=== PATIENT | male | born 1965 | race Caucasian/White ===

== ENCOUNTER 2019-07-30 09:05 | Day surgery (SDC) | payer BC ==
[2019-07-25 15:47] VITALS: BMI 21.2
[~2019-07-30 09:05] MED LIST: LACTATED RINGERS 1,000 ML IV SCH
[2019-07-30 09:26] VITALS: TEMP 98.1
[2019-07-30] MEDS ORDERED: LIDOCAINE 1% 20 ML VIAL (10MG/ML) FOR IV START INTRADERMA ONE (09:31)
[2019-07-30] MEDS ORDERED: MIDAZOLAM 2 MG/2 ML VIAL ONE (09:42)
[2019-07-30] MEDS ORDERED: PROPOFOL 10 MG/ML 20 ML VIAL IV ONE (09:42)
[2019-07-30] MEDS ORDERED: fentaNYL (PF) 50 MCG/ML 2 ML AMP ONE (09:42)
--- NOTE | 2019-07-30 10:15 | P.PCN ---
Date of Procedure: 07/30/19 Description of Procedure: BRIEF HISTORY: Patient is a 54-year-old pleasant male scheduled for an elective colonoscopy as a part of screening for malignant neoplasm of the colon. Patient denies any change in bowel habits, blood per rectum or abdominal pain. He does report a family history of colon cancer in his maternal grandfather in his 50s. No prior colonoscopy reported. PROCEDURE PERFORMED: Colonoscopy with polypectomy. PREOPERATIVE DIAGNOSIS: Screening for malignant neoplasm of the colon, no prior colonoscopy. ESTIMATED BLOOD LOSS: Minimal. IV sedation per Anesthesia. PROCEDURE: After informed consent was obtained, the patient, was brought into the endoscopy unit. IV sedation was administered by Anesthesia under continuous monitoring. Digital rectal examination was normal. Initially the Olympus CF-190 flexible video colonoscope was then inserted in the rectum, gradually advanced into the cecum without any difficulty. Careful examination was performed as the scope was gradually being withdrawn. Ileocecal valve and the appendiceal orifice were visualized and appeared normal, with retroflexion in the cecum with no masses or polyps noted. Prep was excellent. Mucosa of the cecum, ascending colon, transverse colon, descending colon, sigmoid colon, and rectum appeared normal. 2 diminutive polyps measuring 2 mm in size and one from the hepatic flexure and one from the rectum removed with cold forcep polypectomy. A few small sigmoid diverticula were noted. Retroflexion was performed in the rectum and no lesions were seen. The patient tolerated the procedure well. IMPRESSION: Diminutive polyps removed from the hepatic flexure and rectum with cold forceps. Mild sigmoid diverticulosis. RECOMMENDATIONS: Findings of this examination were discussed with the patient. Okay to resume a high-fiber diet. Anticipate repeat colonoscopy in 5 years pending pathology from polypectomies.
[2019-07-30 10:50] VITALS: BP 118/76; PULSE 57; RESP 16
== END 2019-07-30 11:12 | disposition home or self-care (01) ==
LOC: ORWHC2ENDO 09:05
PROVIDERS: ATTEND Internal Medicine
DX: Z12.11 Encounter for screening for malignant neoplasm of colon (principal); K57.30 Diverticulosis of large intestine without perforation or abscess without bleeding; Z80.0 Family history of malignant neoplasm of digestive organs; D12.3 Benign neoplasm of transverse colon; D12.8 Benign neoplasm of rectum; Z79.899 Other long term (current) drug therapy; K21.9 Gastro-esophageal reflux disease without esophagitis
CPT/HCPCS: 88305; 45380; J2250; J3010; J2704